=== PATIENT | male | born 1945 | race Caucasian/White ===

== ENCOUNTER 2020-09-12 12:07 | Outpatient (REF) | payer MEDICARE, SELFPAY ==
[2020-09-12 14:42] LABS: Alanine Aminotransferase 21 U/L (0-40); Albumin Level 4.7 g/dL (3.5-5.0); Alkaline Phosphatase 70 U/L (39-117); Anion Gap 11 (12-20); Aspartate Amino Transferase 18 U/L (5-37); Bilirubin Total 1.3 mg/dL (0.0-1.0); Blood Urea Nitrogen 11 mg/dL (9-16); Calcium 9.2 mg/dL (8.4-10.2); Carbon Dioxide 29 mmol/L (22-29); Chloride 103 mmol/L (96-108); Cholesterol 182 mg/dL; Estimated Glomerular Filt Rate > 60; Glucose Fasting 92 mg/dL (60-99); HDL Cholesterol 48 mg/dL; LDL Cholesterol Calculated 120 mg/dl; Potassium 4.4 mmol/L (3.3-5.1); Sodium 139 mmol/L (135-145); Total Protein 7.1 g/dL (6.5-8.0); Triglycerides 72 mg/dL
[2020-09-12 15:07] LABS: Prostate Specific Antigen Scr 0.92 ng/mL (<0.05-4.0); TSH reflex Free T4 0.98 uIU/mL (0.32-4.0)
== END 2020-09-12 12:08 | disposition home or self-care (01) ==
LOC: HO.LAB 12:07
PROVIDERS: PCP Nurse Practitioner Family; Visit Provider Nurse Practitioner Family
DX: Z13.89 Encounter for screening for other disorder (principal)
CPT/HCPCS: 36415; 80053; 80061; 84153; 84443

== ENCOUNTER 2020-09-12 12:20 | Day surgery (SDC) | payer MEDICARE, SELFPAY ==
[2020-09-08 14:19] VITALS: BMI 26.4
--- NOTE | 2020-09-11 08:27 | HO.ANESPROP2 ---
Documented by User: Smitha Zamudio 09/11/20 08:28 HPI - Anesthesia Eval Consult details Narrative: 75yo M for Upper Endoscopy PMFSH Past Medical History Medical History Arthritis Schaefer esophagus BPH (benign prostatic hyperplasia) DJD (degenerative joint disease) Hypertension PUD (peptic ulcer disease) Surgical History Surgical History History of esophagogastroduodenoscopy (EGD) History of repair of retinal tear by laser photocoagulation History of total right hip arthroplasty Hx of blepharoplasty Hx of colonoscopy Hx of hemorrhoidectomy Social History Social History Are you a primary critical care nurse practitioner to a significant other at home: No Do you presently have visiting nurse or other home services: No Smoking Status: Former smoker Smoking Quit Date: >45 yrs ago Second Hand Smoke Exposure: No Use of substances other than those prescribed or required for medical reasons: No Have you been hit, kicked, punched, or otherwise hurt by someone within the past year? If so, by whom?: No Advance Directives: No Advance Directives Information Provided: No Advance Directives on File: No Meds Allergies Allergy/AdvReac Type Severity Reaction Status Date / Time clarithromycin [From PREVPAC] Allergy Intermediate HIVES Verified 09/12/20 13:27 lansoprazole [From PREVPAC] Allergy Intermediate HIVES Verified 09/12/20 13:27 penicillin V Allergy Unknown Hives Verified 09/12/20 13:27 Prevpac Allergy Unknown Hives Verified 09/12/20 13:27 From PREVPAC Allergy Intermediate HIVES Uncoded 09/12/20 13:27 Biaxin Allergy Unknown Hives Uncoded 09/12/20 13:27 penicillin Allergy Unknown Hives Uncoded 09/12/20 13:27 Home Medications Medication Instructions Recorded Confirmed Type cholecalciferol (vitamin D3) 50 mcg PO DAILY 09/08/20 09/08/20 History [Vitamin D3] pantoprazole 1 tab PO DAILY 09/08/20 09/08/20 History Exam Exam Date and Time: September 11, [id number] Height,Weight and Vital Signs: Height 5 ft 9.5 in Weight 82.554 kg Assessment and Plan Assessment Anesthesia Assessment: Chart Reviewed Documented by User: Luisa Andrade 09/12/20 13:41 PMFSH Past Medical History Medical History Arthritis Schaefer esophagus BPH (benign prostatic hyperplasia) DJD (degenerative joint disease) Hypertension PUD (peptic ulcer disease) Surgical History Surgical History History of esophagogastroduodenoscopy (EGD) History of repair of retinal tear by laser photocoagulation History of total right hip arthroplasty Hx of blepharoplasty Hx of colonoscopy Hx of hemorrhoidectomy Social History Social History Are you a primary critical care nurse practitioner to a significant other at home: No Do you presently have visiting nurse or other home services: No Smoking Status: Former smoker Smoking Quit Date: >45 yrs ago Second Hand Smoke Exposure: No Use of substances other than those prescribed or required for medical reasons: No Have you been hit, kicked, punched, or otherwise hurt by someone within the past year? If so, by whom?: No Advance Directives: No Advance Directives Information Provided: No Advance Directives on File: No Meds Allergies Allergy/AdvReac Type Severity Reaction Status Date / Time clarithromycin [From PREVPAC] Allergy Intermediate HIVES Verified 09/12/20 13:27 lansoprazole [From PREVPAC] Allergy Intermediate HIVES Verified 09/12/20 13:27 penicillin V Allergy Unknown Hives Verified 09/12/20 13:27 Prevpac Allergy Unknown Hives Verified 09/12/20 13:27 From PREVPAC Allergy Intermediate HIVES Uncoded 09/12/20 13:27 Biaxin Allergy Unknown Hives Uncoded 09/12/20 13:27 penicillin Allergy Unknown Hives Uncoded 09/12/20 13:27 Home Medications Medication Instructions Recorded Confirmed Type cholecalciferol (vitamin D3) 50 mcg PO DAILY 09/08/20 09/08/20 History [Vitamin D3] pantoprazole 1 tab PO DAILY 09/08/20 09/08/20 History Exam Airway Mallampati Class: II TM Dist: >3cm Neck ROM: Full
[2020-09-12 13:08] VITALS: BP 135/67; PULSE 73; RESP 18; TEMP 486.3; TEMP 907.3; O2SAT 95
[2020-09-12] MEDS: Lactated Ringers 1,000 ML 100 ML IVCONT (13:29)
--- NOTE | 2020-09-12 14:11 | MHC.SHP ---
Pre-Procedural Eval Section A The patient is an INPATIENT: No Changes since office visit: No Cold of Flu in the past 2 weeks, No New Medical Problems, No Changes in Medication and No Patient answered all questions The History & Physical has been completed within 30 days and I have reviewed it.: Yes Section B Chief Complaint: barretts Allergies: Allergies Allergy/AdvReac Type Severity Reaction Status Date / Time clarithromycin [From PREVPAC] Allergy Intermediate HIVES Verified 09/12/20 13:27 lansoprazole [From PREVPAC] Allergy Intermediate HIVES Verified 09/12/20 13:27 penicillin V Allergy Unknown Hives Verified 09/12/20 13:27 Prevpac Allergy Unknown Hives Verified 09/12/20 13:27 From PREVPAC Allergy Intermediate HIVES Uncoded 09/12/20 13:27 Biaxin Allergy Unknown Hives Uncoded 09/12/20 13:27 penicillin Allergy Unknown Hives Uncoded 09/12/20 13:27 Plan I have reviewed the history and physical and performed a pertinent physical examination on my patient. No changes have occurred unless specified.
--- NOTE | 2020-09-12 14:30 | PM.OP ---
Brief Operative Note Date of Service: 09/12/20 Pre-op diagnosis: barretts Post-op diagnosis: same Procedure: EGD Surgeon: Gera Marin Anesthesia: MAC Estimated blood loss (mL): 5 Pathology: other (esophagus 36, 30 cm) Condition: stable Disposition: PACU
[2020-09-12 14:32] VITALS: BP 115/76; PULSE 71; RESP 16; TEMP 36.3; O2SAT 98
[2020-09-12 14:47] VITALS: BP 135/71; PULSE 71; RESP 16; TEMP 36.3; O2SAT 98
[2020-09-12 15:01] VITALS: BP 130/72; PULSE 71; RESP 16; O2SAT 99
--- NOTE | 2020-09-13 00:27 | OP_ITS ---
SURGEON: Gear Marin MD INDICATIONS: Schaefer's esophagus. PREOPERATIVE DIAGNOSIS: POSTOPERATIVE DIAGNOSIS: PROCEDURE PERFORMED: Upper endoscopy with biopsy. ESTIMATED BLOOD LOSS: COMPLICATIONS: ANESTHESIA: ASSISTANTS: SPECIMENS: MEDICATIONS: Monitored anesthesia care. DESCRIPTION OF PROCEDURE: History and physical performed. The risks and benefits of the procedure were explained to the patient. Informed consent was obtained. The patient was placed in left lateral decubitus position. The Olympus video gastroscope was introduced into the esophagus, stomach, and duodenum. Examination was performed. The scope was removed. He tolerated the procedure well, and was taken to recovery in stable condition. FINDINGS: Esophagus: There were some whitish plaques throughout the body of the esophagus. Biopsies were obtained at 30 cm to rule out candidiasis. The area of Schaefer's esophagus is measuring approximately 5 to 10 mm at the EG junction showed no ulcerated areas or raised areas. Biopsies were obtained at 36 cm. Stomach: The stomach showed no evidence of masses, ulcers, or polyps. Duodenum: The bulb and second portion were normal. IMPRESSION: Schaefer's esophagus. RECOMMENDATION: Follow up biopsy results. MD OMA Soto/AKBAR / [id number]
== END 2020-09-12 15:20 | disposition home or self-care (01) ==
PROVIDERS: PCP Nurse Practitioner Family; Visit Provider Internal Medicine Gastroenterology
PROC: 0DJ08ZZ Inspection of Upper Intestinal Tract, Via Natural or Artificial Opening Endoscopic (ICD-10-PCS; CPT 43235; principal; 2020-09-12 14:20)
DX: K22.70 Barrett's esophagus without dysplasia (principal); K21.00 Gastro-esophageal reflux disease with esophagitis, without bleeding; B37.81 Candidal esophagitis; K27.9 Peptic ulcer, site unspecified, unspecified as acute or chronic, without hemorrhage or perforation; I10 Essential (primary) hypertension; N40.0 Benign prostatic hyperplasia without lower urinary tract symptoms; Z79.899 Other long term (current) drug therapy; Z88.0 Allergy status to penicillin; Z88.8 Allergy status to other drugs, medicaments and biological substances; Z96.641 Presence of right artificial hip joint; Z87.891 Personal history of nicotine dependence
CPT/HCPCS: 43239; 36415; 80053; 80061; 84153; 84443; 88305; 88312

== ENCOUNTER 2021-09-10 07:22 | Outpatient (REF) | payer MEDICARE, SELFPAY ==
[2021-09-10 11:36] LABS: Appearance Urine CLEAR; Color Urine YELLOW; Glucose Urine UA NEG (NEG); Leukocyte Esterase Urine NEG (NEG); Nitrite Urine NEG (NEG); Specific Gravity - Urine 1.015 (1.005-1.025); Urine Blood NEG (NEG); Urine Ketones NEG (NEG); Urine Protein NEG (NEG-TRACE)
[2021-09-10 11:59] LABS: Prostate Specific Antigen Scr 0.73 ng/mL (<0.05-4.0)
[2021-09-10 12:00] LABS: Alanine Aminotransferase 21 U/L (0-40); Albumin Level 4.5 g/dL (3.5-5.0); Alkaline Phosphatase 72 U/L (39-117); Anion Gap 14 (12-20); Aspartate Amino Transferase 17 U/L (5-37); Bilirubin Total 1.1 mg/dL (0.0-1.0); Blood Urea Nitrogen 12 mg/dL (9-16); Calcium 9.8 mg/dL (8.4-10.2); Carbon Dioxide 27 mmol/L (22-29); Chloride 101 mmol/L (96-108); Cholesterol 191 mg/dL; Estimated Glomerular Filt Rate > 60; Glucose Fasting 99 mg/dL (60-99); HDL Cholesterol 49 mg/dL; LDL Cholesterol Calculated 125 mg/dl; Potassium 4.8 mmol/L (3.3-5.1); Sodium 137 mmol/L (135-145); Total Protein 7.2 g/dL (6.5-8.0); Triglycerides 86 mg/dL
== END 2021-09-10 07:23 | disposition home or self-care (01) ==
LOC: HO.HMGCLDS 07:22
PROVIDERS: Visit Provider Nurse Practitioner Family
DX: Z12.5 Encounter for screening for malignant neoplasm of prostate (principal); I10 Essential (primary) hypertension
CPT/HCPCS: 36415; 80053; 80061; 81003; 84153; 84443

== ENCOUNTER 2021-11-24 10:49 | Outpatient (REF) | payer MEDICARE, SELFPAY ==
[2021-11-24 15:16] LABS: Prostate Specific Antigen 0.77 ng/mL (<0.05-4.0)
== END 2021-11-24 10:50 | disposition home or self-care (01) ==
LOC: HO.HMGCLDS 10:49
PROVIDERS: PCP Nurse Practitioner Family; Visit Provider Urology
DX: Z12.5 Encounter for screening for malignant neoplasm of prostate (principal)
CPT/HCPCS: 36415; 84153

== ENCOUNTER 2021-12-07 09:05 | Outpatient (REF) | payer MEDICARE, SELFPAY ==
[2021-12-07 12:17] LABS: Alanine Aminotransferase 18 U/L (0-40); Albumin Level 4.4 g/dL (3.5-5.0); Alkaline Phosphatase 77 U/L (39-117); Anion Gap 13 (12-20); Aspartate Amino Transferase 15 U/L (5-37); Bilirubin Total 1.1 mg/dL (0.0-1.0); Blood Urea Nitrogen 8 mg/dL (9-16); Calcium 9.3 mg/dL (8.4-10.2); Carbon Dioxide 27 mmol/L (22-29); Chloride 99 mmol/L (96-108); Cholesterol 169 mg/dL; Estimated Glomerular Filt Rate > 60; Glucose Fasting 99 mg/dL (60-99); HDL Cholesterol 46 mg/dL; LDL Cholesterol Calculated 111 mg/dl; Potassium 3.7 mmol/L (3.3-5.1); Sodium 135 mmol/L (135-145); Triglycerides 64 mg/dL
[2021-12-07 12:22] LABS: TSH reflex Free T4 1.14 uIU/mL (0.32-4.0)
[2021-12-07 12:29] LABS: Appearance Urine CLEAR; Color Urine YELLOW; Glucose Urine UA NEG (NEG); Leukocyte Esterase Urine NEG (NEG); Nitrite Urine NEG (NEG); Urine Blood NEG (NEG); Urine Ketones NEG (NEG); Urine Protein NEG (NEG-TRACE)
== END 2021-12-07 09:06 | disposition home or self-care (01) ==
LOC: HO.HMGCLDS 09:05
PROVIDERS: PCP Nurse Practitioner Family; Visit Provider Nurse Practitioner Family
DX: I10 Essential (primary) hypertension (principal)
CPT/HCPCS: 36415; 80053; 80061; 81003; 84443

== ENCOUNTER → 2021-12-22 09:50 | Outpatient (BNVA) | payer MEDICARE, SELFPAY | PROVIDERS: PCP Nurse Practitioner Family; Visit Provider Urology | DX: N40.0 Benign prostatic hyperplasia without lower urinary tract symptoms (principal) | CPT/HCPCS: 51798; 99212 ==

== ENCOUNTER → 2022-12-21 08:21 | Outpatient (BNVA) | payer MEDICARE, SELFPAY | PROVIDERS: PCP Nurse Practitioner Family; Visit Provider Urology | DX: N40.0 Benign prostatic hyperplasia without lower urinary tract symptoms (principal); Z79.899 Other long term (current) drug therapy | CPT/HCPCS: Q3014 ==